=== PATIENT | female | born 1965 | race Caucasian/White ===

== ENCOUNTER 2018-04-21 01:43 | Emergency (ER) | payer OTHER ==
[2018-04-21] MEDS ORDERED: NS 1,000 ML IV (02:30)
[2018-04-21] MEDS ORDERED: ONDANSETRON 4MG/2ML VIAL (J2405) IV (02:30)
[2018-04-21] MEDS ORDERED: PROPOFOL 200 MG/20 ML VIAL IV (02:30)
[2018-04-21] MEDS ORDERED: LIDOCAINE W/EPINEPHRINE 1% 20ML VIAL As Ordered (02:44)
[2018-04-21] MEDS ORDERED: LIDOCAINE 1% SDV INJ 30 ML VIAL SC (02:45)
[2018-04-21] MEDS: OXYCODONE/APAP 5MG/325MG(BULK FOR ED) 1 TABLET PO (04:52)
== END 2018-04-21 04:58 | disposition home or self-care (01) ==
LOC: M ED 01:43
DX: S82.851A Displaced trimalleolar fracture of right lower leg, initial encounter for closed fracture (principal); S93.01XA Subluxation of right ankle joint, initial encounter; S93.04XA Dislocation of right ankle joint, initial encounter; M77.31 Calcaneal spur, right foot; W19.XXXA Unspecified fall, initial encounter; Y92.9 Unspecified place or not applicable; Y93.9 Activity, unspecified; Y99.9 Unspecified external cause status; E11.9 Type 2 diabetes mellitus without complications; E78.5 Hyperlipidemia, unspecified; Z79.82 Long term (current) use of aspirin; Z79.84 Long term (current) use of oral hypoglycemic drugs; Z79.899 Other long term (current) drug therapy; Z88.5 Allergy status to narcotic agent
CPT/HCPCS: 27816